=== PATIENT | female | born 1980 | race Caucasian/White ===

== ENCOUNTER 2016-12-11 04:00 | Inpatient (IN) | payer OTHER ==
[~2016-12-11] VITALS: Ht 160 cm; Wt 50.8 kg
--- NOTE | ~2016-12-11 | PN ---
Unit #: [id number] #: [id number] Patient: ADAM WAGNER [id number] [facility] [address] [place] [address] [id number] I MR#: [id number] NAME: ADAM WAGNER ROOM: P210 Age: 36 Sex: F Admission Date: 12/11/2016 : 1980 Attending Physician: Mp Knight M.D. Admitting Physician: Mp Knight M.D. Primary Care Physician: [facility] Sara MEHTA NOTES DATE OF SERVICE 12/13/2016 DISCUSSION Ms. Wagner is a 36-year-old white female who was seen today. Chart was reviewed and case was discussed with staff. She remains anxious, withdrawn, depressed and rather seclusive to herself. Meanwhile, she has been cooperative with the treatment recommendations and has been taking the medications and tolerating them fairly well with no reported side effects. MENTAL STATUS EXAMINATION Young white female who is casually dressed with fair personal hygiene, appears to be in no acute distress or discomfort. The patient was awake and alert on interaction with intact orientation. Her mood is anxious with congruent affect. Speech is slow and goal-directed. She denies any suicidal or homicidal ideations and also denies any auditory or visual hallucinations. Her insight and judgment remain slightly impaired. TREATMENT PLAN 1. We will continue her on her current treatment protocol. We will monitor her response and make further adjustments as needed. 2. We will continue to follow up. Dictated by... Esperanza Foster/torrieg TD: 12/14/2016 08:03 JOB #: [id number] Unit #: [id number] #: [id number] Patient: ADAM WAGNER PROGRESS NOTES Page 1 of 1 X Mp Knight MD PROGRESS NOTE
--- NOTE | ~2016-12-11 | PN ---
Unit #: [id number] #: [id number] Patient: ADAM WAGNER [id number] [facility] [address] [place] [address] [id number] I MR#: [id number] NAME: ADAM WAGNER ROOM: P210 Age: 36 Sex: F Admission Date: 12/11/2016 : 1980 Attending Physician: Mp Knight M.D. Admitting Physician: Mp Knight M.D. Primary Care Physician: [facility] Sara MEHTA NOTES DATE OF SERVICE 12/12/2016 DISCUSSION Ms. Wagner is a 36-year-old white female who was seen today. Chart was reviewed and case was discussed with the staff. She has been anxious, withdrawn, and seclusive to herself with blunted affect and minimal interaction and has been exhibiting persistent depressive symptoms. Meanwhile, she has been taking the medications and tolerating them fairly well with no reported side effects. MENTAL STATUS EXAMINATION Young white female who is casually dressed with fair personal hygiene, appears to be in no acute distress or discomfort. She was awake and alert on interaction with intact orientation. Her mood is anxious with congruent affect. She denies any suicidal or homicidal ideations. Her insight and judgment remain slightly impaired. TREATMENT PLAN 1. We will continue her on her current medications and treatment protocol. We will monitor her response to the medications and make further adjustments as needed. 2. We will continue to follow up. Dictated by... Esperanza Foster/torrieg TD: 12/13/2016 08:54 JOB #: [id number] Unit #: [id number] #: [id number] Patient: ADAM WAGNERPRINCE PROGRESS NOTES Page 1 of 1 X Mp Knight MD X PROGRESS NOTE
--- NOTE | ~2016-12-11 | PN ---
Unit #: [id number] #: [id number] Patient: ADAM WAGNER [id number] [facility] [address] [place] [address] [id number] I MR#: [id number] NAME: ADAM WAGNER ROOM: P210 Age: 36 Sex: F Admission Date: 12/11/2016 : 1980 Attending Physician: Mp Knight M.D. Admitting Physician: Mp Knight M.D. Primary Care Physician: [facility] Sara HERNANDEZ PROGRESS NOTES DATE December 14, 2016 DISCUSSION Ms. Wagner is a 36-year-old white female, with substance abuse and mood disorder, who was seen today and chart was reviewed and the case was discussed with the staff. The patient has been anxious, withdrawn, depressed, and rather seclusive to himself and reports significant anxiety, and she states is not responding to medication. Meanwhile, she has been compliant with the treatment recommendations. MENTAL STATUS EXAMINATION Young white female, who was casually dressed with fair personal hygiene and appears to be in no acute distress or discomfort. She was awake and alert with impaired attention and concentration. Her mood was anxious with a congruent affect. The patient denies any suicidal or homicidal ideations. Her insight and judgment remain slightly impaired. TREATMENT PLAN 1. We will continue her on her current medications and treatment protocol, and will monitor her response to the medications, and make further adjustments as needed. 2. We will continue to followup. Dictated by... Esperanza Foster/jules TD: 12/16/2016 11:27 JOB #: [id number] Unit #: [id number] #: [id number] Patient: ADAM WAGNER PROGRESS NOTES Page 1 of 1 X Mp Knight MD PROGRESS NOTE
--- NOTE | ~2016-12-11 | HP ---
Unit #: [id number] #: [id number] Patient: DANIELLE GOMEZ [id number] [place] [address] [id number] I MR#: [id number] NAME: DANIELLE GOMEZ ROOM: P210 Age: 36 Sex: F Admission Date: 12/11/2016 : 1980 Attending Physician: Mp Knight M.D. Admitting Physician: Mp Kinght M.D. Primary Care Physician: [facility] Sara HISTORY AND PHYSICAL HISTORY OF PRESENT ILLNESS Danielle Vivas is a 36-year-old female admitted on 12/11/[address] [place] [address] for depression and suicidal ideation. PAST MEDICAL HISTORY None. PAST SURGICAL HISTORY 1. Hysterectomy. 2. Tonsils and adenoidectomy. ALLERGIES Penicillin and morphine. SOCIAL HISTORY Smokes 1-1/2 packs of cigarettes daily. Binge alcohol use and reports use of cocaine and marijuana. She also has a history of heroin use. She is currently single and homeless. FAMILY HISTORY Noncontributory. REVIEW OF SYSTEMS CONSTITUTIONAL: No fever or chills. HEENT: Denies any sore throat, ear pain or runny nose. CARDIOVASCULAR: Denies chest pain, irregular heart rhythm or palpitations. CHEST: Denies shortness of breath or cough. No hemoptysis. GASTROINTESTINAL: Denies nausea, vomiting, diarrhea or chronic constipation. ENDOCRINE: Denies history of increased thirst or urination. No recent significant weight loss or gain. GENITOURINARY: Denies dysuria, frequency, or hematuria. SKIN: Denies any rashes. HEMATOLOGIC: Denies history of increased bleeding or bruising. MUSCULOSKELETAL: Denies any hot, swollen joints. No generalized muscle pain. NEUROLOGIC: Denies problems with vision or speech. No frequent, severe headaches. No numbness, tingling or weakness in any extremities. Denies loss of bladder or bowel control. CURRENT MEDICATIONS Zoloft. Unit #: [id number] #: [id number] Patient: DANIELLE GOMEZ PHYSICAL EXAMINATION GENERAL: Alert, oriented, in no acute distress. VITAL SIGNS: Blood pressure 109/77, heart rate 92, temperature 97.6. HEIGHT: 5 feet 3. WEIGHT: 112 pounds. SKIN: Warm and dry without rash or lesion. HEENT: Normocephalic. TMs not viewed. Oral and nasal passages clear. Conjunctivae clear. PERRLA. EOMs intact. NECK: Supple without lymphadenopathy or thyromegaly. HEART: Regular rate and rhythm without murmur. LUNGS: Clear. ABDOMEN: Soft, nontender, without masses or hepatosplenomegaly. : Not done. EXTREMITIES: No evidence of cyanosis, clubbing or edema. Moves all without focal deficit. NEUROLOGICAL: Grossly within normal limits. Cranial Nerves: II: Visual huber are intact. III, IV AND : Extraocular movements are intact. Pupils are equal, round and reactive to light. V: Facial sensation is grossly normal. VII: Facial movements and expression are normal. VIII: Auditory acuity grossly intact. IX, X: Uvula is midline. Phonation is normal. XI: Patient shrugs shoulders and turns head normally. XII: Tongue protrudes in the midline. Sensory and Motor Function: Sensory and motor sensation is grossly normal. Motor: moves all extremities well. Coordination: Gait is normal. Deep Tendon Reflexes: Intact. IMPRESSION Psychiatric admission. RECOMMENDATIONS PSYCHIATRIC: Per psychiatrist. MEDICAL: No contraindication to participate in facility's activities. MEDICAL PROGNOSIS Good. MEDICAL CONDITION Stable. Dictated by... Karlo Styles/ludwig TD: 12/11/2016 21:02 JOB #: [id number] Unit #: [id number] #: [id number] Patient: DANIELLE GOMEZ HISTORY AND PHYSICAL Page 1 of 1 X PARTHA THOMAS APRN X HISTORY AND PHYSICAL
--- NOTE | ~2016-12-11 | DS ---
Unit #: [id number] #: [id number] [facility]: [facility] [id number] [facility] [address] [place] [address] [id number] I MR#: [id number] NAME: ADAM WAGNER ROOM: [facility] Age: 36 Sex: F Admission Date: 12/11/2016 : 1980 Discharge Date: 12/16/2016 Attending Physician: Mp Knight M.D. Primary Care Physician: [facility] Sara DISCHARGE SUMMARY IDENTIFYING DATA Ms. Wagner is a 36-year-old single white female, who is a resident of [place], [place], and was transferred to us from [facility]. DISCHARGE DIAGNOSES Psychiatric: Major depressive disorder, recurrent, moderate, without psychotic features; alcohol abuse, moderate; cannabis abuse, moderate; cocaine abuse, moderate. Medical: None. Stressors: Mild psychosocial stressors. HISTORY OF PRESENT ILLNESS Please see initial psychiatric evaluation for details. PAST PSYCHIATRIC HISTORY Please see initial psychiatric evaluation for details. PAST MEDICAL HISTORY Please see initial psychiatric evaluation for details. HOSPITAL COURSE The patient was admitted to the adult psychiatric unit at [facility] kasey Galvez and was oriented to the hospital environment. Routine p.r.n. medications were initiated, and she was started back on her home medications and medications were adjusted and Zoloft was increased to 100 mg and BuSpar was also added as an anxiolytic and she was closely monitored. She was taking the medications regularly and was tolerating them fairly well and was able to show a decent and therapeutic response with improvement in depression and anxiety, and as such, it was decided that she will be discharged home and will continue treatment on an outpatient basis. DISCHARGE MEDICATIONS Zoloft 100 mg a day for depression and BuSpar 15 mg t.i.d. for anxiety. DISCHARGE CONDITION Stable. PROGNOSIS Fair. Dictated by... Mp Knight M.D. Unit #: [id number] #: [id number] Patient: ADAM WAGNER IAA/modl TD: 12/16/2016 23:13 JOB #: [id number] DISCHARGE SUMMARY Page 1 of 1 X Afaq,Irfan A MD X DISCHARGE SUMMARY
--- NOTE | ~2016-12-11 | PN ---
Unit #: [id number] #: [id number] Patient: ADAM WAGNER [id number] [facility] [address] [place] [address] [id number] MR#: [id number] NAME: ADAM WAGNER ROOM: P210 Age: 36 Sex: F Admission Date: 12/11/2016 : 1980 Attending Physician: Mp Knight M.D. Admitting Physician: Mp Knight M.D. Primary Care Physician: [facility] Sara MEHTA NOTES DATE 12/15/2016 DISCUSSION Ms. Wagner is a 36-year-old white female who was seen today and chart was reviewed and case was discussed with the staff. She has been anxious, withdrawn though appears to be doing fairly well and showing improvement in her mood and (1) and has been cooperative with treatment recommendations. She has been taking the medications and tolerating them fairly well with no reported side effects. MENTAL STATUS EXAMINATION Young white female who was casually dressed with fair personal hygiene, appears to be in no acute distress or discomfort. She was awake and alert on interaction with intact orientation. Her mood was anxious with congruent affect. She denies any suicidal or homicidal ideations. Her insight and judgement remains slightly impaired. TREATMENT PLAN 1. We will continue her on her current treatment protocol. We will monitor her response and make further adjustments as needed. 2. We will continue to follow up. Dictated by... Esperanza Foster/aníbal TD: 12/17/2016 04:32 JOB #: [id number] Unit #: [id number] #: [id number] Patient: ADAM WAGNER PROGRESS NOTES Page 1 of 1 X Mp Knight MD X PROGRESS NOTE
--- NOTE | ~2016-12-11 | PA ---
Unit #: [id number] #: [id number] Patient: ADAM WAGNER [id number] [facility] [address] [place] [address] [id number] I MR#: [id number] NAME: ADAM WAGNER ROOM: P210 Age: 36 Sex: F Admission Date: 12/11/2016 : 1980 Date of Assessment: 12/11/2016 Attending Physician: Mp Knight M.D. Admitting Physician: Mp Knight M.D. Primary Care Physician: [facility] Sara PSYCHIATRIC ASSESSMENT DATE OF SERVICE 12/11/2016. IDENTIFYING DATA Ms. Wagner is a 36-year-old single white female, who is a resident of [place], [place], and was transferred to from [facility]. CHIEF COMPLAINT "Suicidal ideations." HISTORY OF PRESENT ILLNESS Ms. Wagner is a 36-year-old white female with history of mood disorder, who was self-referred to the hospital. Upon presentation, she reports increasing depression and suicidal ideations and superficial cuts to her left arm, and reports that she is tired of fighting and she wants to give up and that about 3 weeks ago, she reconciled a relationship with the father of her kids, but they got into an argument tonight. She reports that she has a history of self-harming in the past and reports feeling anxious and irritable and not being on her medication for the last 2 weeks, which was prescribed by her primary care physician. She does endorse increasing depression, anxiety, irritability, feelings of hopelessness and helplessness, and suicidal ideations, and as such, a recommendation for inpatient level of care for safety and stabilization was made and the patient was transferred to us. SUBSTANCE ABUSE HISTORY The patient reports a history of alcohol, cannabis, cocaine, opioid, and amphetamine abuse, and reports that more recently she has been using crack cocaine and cannabis and alcohol on a regular basis. PAST PSYCHIATRIC HISTORY The patient has had a history of psychiatric treatment through [facility], and review of the medical records indicate that she is supposed to be on Zoloft, but has been noncompliant with the medications and as such, has been decompensating. PAST MEDICAL HISTORY No acute or chronic medical illnesses. ALLERGIES Penicillin and morphine. Unit #: [id number] #: [id number] Patient: ADAM WAGNER PERSONAL AND SOCIAL HISTORY A 36-year-old white female, who reports that she is single, unemployed, and lives by herself and has poor social support system. MENTAL STATUS EXAMINATION Young white female, who was casually dressed with fair personal hygiene, appears to be in no acute distress or discomfort. She was awake and alert on interaction with intact orientation to time, place, and person. Her mood was anxious and depressed with a congruent affect. Her speech was slow and restricted in content. Her thought processes were disorganized with some looseness of associations and suicidal ideations. Her insight and judgment remain significantly impaired. DIAGNOSTIC IMPRESSION Psychiatric: Major depressive disorder, recurrent, moderate, without psychotic features; alcohol abuse, moderate; cocaine abuse, moderate; and cannabis abuse, moderate. Medical: None. Stressors: Moderate psychosocial stressors. TREATMENT PLAN 1. The patient has presented with a history of mood disorder and has substance abuse and has been decompensating and will need inpatient hospitalization for safety and stabilization. We will start her back on her home medications and we will adjust the medications and monitor response. 2. Supportive therapy was provided to the patient. 3. Safe, structured, and nourishing environment will be provided. ESTIMATED LENGTH OF STAY 5 to 7 days. ABILITY TO HELP SELF Limited. WILLINGNESS TO HELP SELF The patient appears to be willing to help self. STRENGTHS 1. Communicative. 2. Cooperative. PROBLEMS 1. Chronic dysphoric symptoms. 2. Poor social support system. DISCHARGE CRITERIA This will be contingent upon the patient's ability to show resolution of her depression and anxiety and her ability to stay safe and sober, particularly after discharge from the hospital. Dictated by... Mp Knight M.D. LES/bam TD: 12/12/2016 13:54 Unit #: [id number] #: [id number] Patient: ADAM WAGNER JOB #: [id number] PSYCHIATRIC ASSESSMENT Page 1 of 1 X Mp Knight MD X PSYCHIATRIC ASSESSMENT
[~2016-12-11 04:00] MED LIST: BACTRIM DS TABL1 TA1 PO; DARVOCET-N 1001 TA1 DOB; DICLOFENAC PO; ERYTHROCIN STE500 M1; ERYTHROMYCIN B500 MG PO; FIORICET 50-321 EACH PO; FLEXERIL PO; FLEXERIL10 MG PO; IBUPROFEN PO; IBUPROFEN100 MG PO; IBUPROFEN800 MG PO; LORTAB 7.5-5001 TAB PO; MEDROL PO; MOBIC15 MG PO; NAPROSYN500 MG PO; NO MEDICATIONS; NORCO 5/325 TAB1 TAB PO; PERCOCET; PERCOCET5/325 PO; PHENERGAN PO; ULTRAM PO; VIBRAMYCIN100 M1 PO; VICODIN 5/1 TAB 5/50 PO; VIVELLE B TD; VOLTAREN75 MG PO; [UNRECOGNIZED DRUG - OTHER]
[2016-12-12 12:30] LABS: BASOPHIL# 0.1 X10e3 (0-0.3); BASOPHIL% 0.9 % (0-2.5); EOSINOPHIL# 0.3 X10e3 (0-0.7); HEMOGLOBIN 13.3 gm/dL (12.0-16.0); LYMPHOCYTE# 2.4 X10e3 (1.0-3.5); LYMPHOCYTE% 37.7 % (17.0-45.0); MEAN CELL VOLUME 91.9 FL (83-96); MEAN CORPUSCULAR HEMOGLOBIN 30.6 PG (28-34); MEAN CORPUSCULAR HGB CONC 33.2 g/dL (30-36); MEAN PLATELET VOLUME 9.5 FL (6.5-11.5); MONOCYTE# 0.7 X10e3 (0-1.0); MONOCYTE% 10.3 % (3.0-12.0); NEUTROPHIL% 46.1 % (40-75); PLATELET COUNT 222 X10e3 (140-420); RED BLOOD COUNT 4.35 X10e (3.90-5.30); RED CELL DISTRIBUTION WIDTH 13.3 % (11.0-15.5); WHITE BLOOD COUNT 6.4 X10e3 (4.0-10.5)
[2016-12-12 12:31] LABS: DIFF IND NO
[2016-12-12 12:40] LABS: ALBUMIN SERUM 4.4 g/dL (3.5-5.0); BILIRUBIN,TOTAL 0.9 mg/dL (0.2-2.0); CALCIUM SERUM 9.8 mg/dL (8.4-10.2); GLOM FILT RATE Estimated 73.5 mL/min (>60); POTASSIUM 4.4 mmol/L (3.5-5.1); PROTEIN TOTAL SERUM 7.7 g/dL (6.0-8.3)
[2016-12-13 09:49] LABS: URINE APPEARANCE CLEAR; URINE BILIRUBIN NEG (NEG); URINE BLOOD TRACE (NEG); URINE COLOR YELLOW; URINE GLUCOSE NEG (NEG); URINE KETONE NEG (NEG); URINE LEUKOCYTE ESTERASE TRACE (NEG); URINE NITRATE NEG (NEG); URINE PROTEIN NEG (NEG); URINE SPECIFIC GRAVITY 1.006 (1.003-1.035); URINE UROBILINOGEN 0.2 MG/DL (NEG)
[2016-12-13 09:52] LABS: URBCS1 AUWI 0-2 /[HPF] (0-2); URINE BACTERIA AUWI NEG (NEGATIVE); URINE SQUAMOUS EPITHELIAL CELL NONE SEEN /[HPF]; UWBCS1 AUWI 0-2 (0-5)
[2016-12-13 11:43] LABS: AMPHETAMINE NEG (NEG); BARBITURATES NEG (NEG); BENZODIAZEPINES NEG (NEG); COCAINE NEG (NEG); MARIJUANA NEG (NEG); OPIATES NEG (NEG); TRICYCLIC ANTIDEPRESSANTS NEG (NEG); U METHADONE NEG (NEG)
== END 2016-12-16 09:35 | DRG 885 ==
LOC: P2S 06:03
PROVIDERS: Psychiatry & Neurology Psychiatry
DX: F33.1 Major depressive disorder, recurrent, moderate (principal); R45.851 Suicidal ideations; F10.10 Alcohol abuse, uncomplicated; F14.10 Cocaine abuse, uncomplicated; F12.10 Cannabis abuse, uncomplicated; F41.9 Anxiety disorder, unspecified; Z59.0 Homelessness; Z88.0 Allergy status to penicillin; Z88.5 Allergy status to narcotic agent; Z56.0 Unemployment, unspecified; F17.210 Nicotine dependence, cigarettes, uncomplicated
CPT/HCPCS: 80053; 80307; 81003; 85025